=== PATIENT | male | born 1975 | race Caucasian/White ===

== ENCOUNTER 2018-01-21 16:05 | Emergency (ER) | payer OTHER ==
[~2018-01-21] VITALS: Ht 180.3 cm; Wt 99.8 kg
--- NOTE | ~2018-01-21 | EKG ---
[address] [place] [address] ELECTROCARDIOGRAM REPORT Name: LIZA MENDEZ [id number] Admission: 01/21/18 Attend Phys: Discharge: Date of : 71 Report #: [id number] THIS REPORT FOR: //name// [facility] ED Test Date: 2018-01-21 Test Time: 16:47:54 Pat Name: LIZA MENDEZ Department: Room: Gender: Shine Worker: SANDRAEmily : 1975 Requested By: Funmi Glover Order Number: [id number] MD: Isidro Avery Measurements Intervals [place] Rate: 85 P: NM: QRS: 24 QRSD: 97 T: 16 QT: 362 QTc: 431 Interpretive Statements Sinus rhythm Compared to ECG 03/25/2015 13:12:51 no significant change was Electronically Signed On 01-21-2018 16:55:31 PHARM SPEC by Isidro Avery [email or web address] <ELECTRONICALLY SIGNED> By: Isidro Avery MD, [facility] 01/21/18 1655 [id number] Isidro Avery MD, FACC /EPI
[~2018-01-21 16:05] MED LIST: ATIVAN0.5 MG PO; CELEXA20 MG PO; CYCLOBENZAPRINE5 MG PO; NAPROSYN500 MG PO; NEURONTIN100 MG PO; NORVASC10 MG PO; NORVASC2.5 MG PO; OXYCONTIN10 M1 PO
[2018-01-21] MEDS ORDERED: NORCO 10-325 T1 EACH PO (16:20)
[2018-01-21] MEDS ORDERED: CYMBALTA30 MG PO (16:21)
[2018-01-21] MEDS ORDERED: SEROQUEL 50 MG50 MG PO (16:21)
[2018-01-21] MEDS ORDERED: TRAZODONE HCL100 MG PO (16:22)
[2018-01-21 16:41] LABS: HEMOGLOBIN 14.5 gm/dL (14.0-18.0); MCH 31.6 pg (26.0-34.0); PLATELET COUNT 199 thou/uL (150-400); RBC 4.59 mil/uL (4.50-6.00); WBC 8.5 thou/uL (4.0-11.0)
[2018-01-21 16:43] LABS: ABSOLUTE NEUTROPHILS 5.8 thou/uL (1.4-8.2); BASOPHILS 0.6 % (0.0-2.0); HEMATOCRIT 41.3 % (42.0-52.0); LYMPHOCYTES 24.2 % (24.0-44.0); MCV 90.1 fL (80.0-100.0); MONOCYTES 6.4 % (1.0-8.0); POLYS 67.8 % (36.0-66.0); RDW 13.8 % (10.5-14.5)
[2018-01-21 16:51] LABS: ANION GAP 9 mmol/L (7-16); BUN 11 mg/dL (7-18); CALCIUM 9.5 mg/dL (8.5-10.1); CHLORIDE 97 mmol/L (98-107); CO2 26 mmol/L (21-32); CREATININE 0.9 mg/dL (0.7-1.3); GLUCOSE 128 mg/dL (74-106); POTASSIUM 3.6 mmol/L (3.5-5.1); SODIUM 132 mmol/L (136-145)
[2018-01-21 16:57] LABS: ALBUMIN 4.3 g/dL (3.4-5.0); SALICYLATE < 2.8 mg/dL (2.8-20.0); SGOT 18 U/L (15-37); SGPT 53 U/L (30-65); TOTAL BILIRUBIN 0.7 mg/dL (<0.1-1.0); TOTAL PROTEIN 7.7 g/dL (6.4-8.2)
[2018-01-21 17:21] LABS: URINE BILIRUBIN NEGATIVE (Negative); URINE BLOOD NEGATIVE (Negative); URINE CLARITY CLEAR; URINE COLOR YELLOW; URINE GLUCOSE-RANDOM* NEGATIVE (Negative); URINE KETONES NEGATIVE (Negative); URINE LEUKOCYTES NEGATIVE (Negative); URINE NITRITE NEGATIVE (Negative); URINE PROTEIN (DIPSTICK) NEGATIVE (Negative); URINE UROBILINOGEN 0.2 E.U./dl (0.2-1.0)
[2018-01-21 17:30] LABS: AMP/METHAMP Negative (Negative); BARBITURATES Negative (Negative); BENZODIAZEPINES Negative (Negative); COCAINE Negative (Negative); METHADONE Negative (Negative); OPIATES POSITIVE (Negative); PCP Negative (Negative)
[2018-01-21 23:20] VITALS: BP 127/82
== END 2018-01-21 23:21 ==
LOC: ER 16:05
PROVIDERS: Physician Assistant
DX: T42.6X2A Poisoning by other antiepileptic and sedative-hypnotic drugs, intentional self-harm, initial encounter (principal); R11.2 Nausea with vomiting, unspecified; G89.29 Other chronic pain; I10 Essential (primary) hypertension; F41.0 Panic disorder [episodic paroxysmal anxiety]; F32.9 Major depressive disorder, single episode, unspecified; F17.210 Nicotine dependence, cigarettes, uncomplicated; Y92.89 Other specified places as the place of occurrence of the external cause